=== PATIENT | female | born 1980 | race Caucasian/White ===

== ENCOUNTER 2018-07-08 11:40 | Emergency (ER) | payer MEDICAID ==
[~2018-07-08] VITALS: Ht 165.1 cm; Wt 71.2 kg
[2018-07-08 11:44] VITALS: BP_SYST 121
[2018-07-08] MEDS ORDERED: LORazepam 1 MG TABLET PO ONE (12:00)
[2018-07-08 13:45] VITALS: BP_SYST 120
== END 2018-07-08 13:45 | disposition home or self-care (01) ==
LOC: SED 11:40
DX: R06.4 Hyperventilation (principal); R03.0 Elevated blood-pressure reading, without diagnosis of hypertension
CPT/HCPCS: 71045; 93005; 99284